=== PATIENT | male | born 1985 | race Caucasian/White ===

== ENCOUNTER 2017-10-29 11:17 | Emergency (ER) | payer SELFPAY ==
[~2017-10-29] VITALS: Ht 162.6 cm; Wt 77.1 kg
[~2017-10-29 11:17] MED LIST: IBP800T PO; LEVO500T69 PO; LORA1TAB PO; TRM50T PO
[2017-10-29] MEDS ORDERED: PANTOPRAZOLE 40 MG/10 ML (PROTONIX) VIAL IV ONE (11:30)
[2017-10-29 11:38] LABS: BASOPHILS % (AUTO) 0 % (0-10); EOSINOPHILS # (AUTO) 0.1 10^3/uL (0.0-0.3); EOSINOPHILS % (AUTO) 1 % (0-10); HEMATOCRIT 44 % (40-54); HEMOGLOBIN 15.7 G/DL (13.3-17.7); LYMPHOCYTES # (AUTO) 3.5 X 10^3 (1.0-4.0); LYMPHOCYTES % (AUTO) 34 % (12-44); MEAN CORPUSCULAR HEMOGLOBIN 33 PG (25-34); MEAN CORPUSCULAR HGB CONC 36 G/DL (32-36); MEAN CORPUSCULAR VOLUME 91 FL (80-99); MEAN PLATELET VOLUME 9.8 FL (7.4-10.4); MONOCYTES # (AUTO) 0.6 X 10^3 (0.0-1.0); MONOCYTES % (AUTO) 6 % (0-12); NEUTROPHILS # (AUTO) 6.1 X 10^3 (1.8-7.8); NEUTROPHILS % (AUTO) 59 % (42-75); PLATELET COUNT 256 10^3/uL (130-400); RED BLOOD COUNT 4.77 10^6/uL (4.35-5.85); RED CELL DISTRIBUTION WIDTH 12.9 % (10.0-14.5); WHITE BLOOD COUNT 10.3 10^3/uL (4.3-11.0)
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
[2017-10-29] MEDS ORDERED: LORA2TAB (11:40)
[2017-10-29] MEDS ORDERED: AMIT150T (11:40)
[2017-10-29] MEDS ORDERED: NS 250 ML (IVPB) BAG IV ONE (12:00)
[2017-10-29] MEDS ORDERED: CATHETER FLUSH 10 ML SYR IV PRN (12:00)
[2017-10-29] MEDS ORDERED: IOHEXOL 350 MG/ML 100 ML (OMNIPAQUE 350) VIAL IV ONE (12:00)
[2017-10-29 12:01] LABS: ALANINE AMINOTRANSFERASE 21 U/L (0-55); ALBUMIN 4.6 GM/DL (3.2-4.5); ALKALINE PHOSPHATASE 58 U/L (40-136); BILIRUBIN,TOTAL 0.3 MG/DL (0.1-1.0); BUN/CREATININE RATIO 19; CALCIUM 9.3 MG/DL (8.5-10.1); CARBON DIOXIDE 22 MMOL/L (21-32); CHLORIDE 108 MMOL/L (98-107); CREATININE SERUM 0.84 MG/DL (0.60-1.30); GFR ESTIMATED > 60; GLUCOSE 88 MG/DL (70-105); POTASSIUM 4.3 MMOL/L (3.6-5.0); SODIUM 142 MMOL/L (135-145); TOTAL PROTEIN 7.7 GM/DL (6.4-8.2)
--- NOTE | 2017-10-29 12:18 | Diagnostic Imaging Report ---
PROCEDURE: CT abdomen and pelvis with contrast. TECHNIQUE: Multiple contiguous axial images were obtained through the abdomen and pelvis after administration of intravenous contrast. INDICATION: Abdominal pain and vomiting blood. COMPARISON: Comparison is made with prior CT from 02/10/2013. FINDINGS: The lung bases are clear. Enhancing lesion in the right lobe of the liver posteriorly is stable and most consistent with a hemangioma. No additional liver mass is identified. The gallbladder is unremarkable. The pancreas and spleen are unremarkable. No adrenal mass is detected. The kidneys are unremarkable. Aorta is nonaneurysmal. The small and large bowel loops are normal caliber. There is no ascites. No inflammatory process is seen. The bladder and prostate are unremarkable. IMPRESSION: No acute abnormality in the abdomen or pelvis is identified. Dictated by: Dictated on workstation # [id number]
[2017-10-29] MEDS ORDERED: SUCR1TAB PO (12:37)
[2017-10-29] MEDS ORDERED: PANT40TA2 PO (12:37)
[2017-10-29 12:47] VITALS: BP 123/70
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
== END 2017-10-29 12:47 | disposition home or self-care (01) ==
LOC: EDUNIT# 11:17 → ER 11:20
DX: K29.70 Gastritis, unspecified, without bleeding (principal); K92.0 Hematemesis; F41.9 Anxiety disorder, unspecified; F32.9 Major depressive disorder, single episode, unspecified
CPT/HCPCS: 36415; 74177; 80053; 85025; 96374

== ENCOUNTER → 2019-10-05 | Outpatient (CLI) | payer SELFPAY ==
[~2019-10-05] MED LIST changes: +AMIT150T; +LORA2TAB; +PANT40TA2 PO; +SUCR1TAB PO
--- NOTE | 2019-10-05 12:51 | Diagnostic Imaging Report ---
PROCEDURE: MR imaging cervical spine without contrast. TECHNIQUE: Multiplanar, multisequence MR imaging of the cervical spine was performed without contrast. INDICATION: Neck pain and left shoulder pain. There is some straightening of the normal cervical lordotic curvature. There is minimal retrolisthesis C5 on C6. Vertebral body marrow signal is unremarkable. There is some degenerative disc disease C5-C6 level with disc space narrowing and desiccation. Cervical cord show normal homogeneous signal intensity. Craniocervical junction is unremarkable. C2-C3: The central canal and neural foramina are widely patent. C3-C4: Central canal and neural foramina are widely patent. C4-C5: Central canal and neural foramina are widely patent. C5-C6: Endplate osteophytes indent the ventral thecal sac. Even so, no significant central canal narrowing is seen. There appears to be moderate narrowing of the left neural foramen. Right neural foramen is patent. C6-C7: Central canal and neural foramina are widely patent. C7-T1: Central canal and neural foramina are patent. IMPRESSION: C5-C6 degenerative disc disease. There does appear to be some left neural foraminal narrowing. No central canal stenosis is detected. Dictated by: Dictated on workstation # [id number]
== END ==
LOC: RAD 11:08
PROVIDERS: ATTEND Nurse Practitioner Community Health
DX: M50.122 Cervical disc disorder at C5-C6 level with radiculopathy (principal)
CPT/HCPCS: 72141

== ENCOUNTER 2020-09-25 11:42 | Emergency (ER) | payer SELFPAY ==
[~2020-09-25] VITALS: Ht 165 cm; Wt 68.0 kg
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
[2020-09-25 12:47] LABS: BILIRUBIN,URINE NEGATIVE (NEGATIVE); CLARITY,URINE CLEAR; COLOR,URINE YELLOW; GLUCOSE, URINE (UA) NEGATIVE (NEGATIVE); KETONES,URINE NEGATIVE (NEGATIVE); LEUKOCYTE ESTERASE ,URINE NEGATIVE (NEGATIVE); NITRITE,URINE NEGATIVE (NEGATIVE); PH,URINE 6.5 (5-9); PROTEIN,URINE NEGATIVE (NEGATIVE)
[2020-09-25 13:02] LABS: AMORPHOUS SEDIMENT,UR FEW AMOR URATES /LPF; BACTERIA,URINE NEGATIVE /HPF
[2020-09-25] MEDS ORDERED: KETOROLAC 60 MG/2 ML VIAL IM STA (13:42)
[2020-09-25 14:07] VITALS: BP 114/74
== END 2020-09-25 14:07 | disposition home or self-care (01) ==
LOC: EDUNIT# 11:42 → ER 11:43
DX: K40.90 Unilateral inguinal hernia, without obstruction or gangrene, not specified as recurrent (principal)
CPT/HCPCS: 81000; 99284

== ENCOUNTER 2020-10-04 05:51 | Outpatient (CLI) | payer OTHER ==
[~2020-10-04] VITALS: Ht 165.1 cm; Wt 64.0 kg
== END 2020-10-04 14:23 | disposition home or self-care (01) ==
LOC: PREOP 05:51
PROVIDERS: ATTEND Surgery
DX: Z01.818 Encounter for other preprocedural examination (principal)

== ENCOUNTER 2020-10-11 07:16 | Day surgery (SDC) | payer OTHER ==
[~2020-10-11] VITALS: Ht 165.1 cm; Wt 64.0 kg
[2020-10-11] VITALS (15 sets, daily range): BP systolic 90–125; BP diastolic 50–90
[2020-10-11] MEDS ORDERED: ceFAZolin 2 GM IV Premixed 50 ML IV ONE (07:45)
[2020-10-11 08:02] LABS: BASOPHILS % (AUTO) 0 % (0-10); EOSINOPHILS # (AUTO) 0.1 10^3/uL (0.0-0.3); EOSINOPHILS % (AUTO) 1 % (0-10); HEMATOCRIT 43 % (40-54); LYMPHOCYTES % (AUTO) 27 % (12-44); MEAN CORPUSCULAR HEMOGLOBIN 32 pg (25-34); MEAN CORPUSCULAR HGB CONC 35 g/dL (32-36); MEAN CORPUSCULAR VOLUME 93 fL (80-99); MEAN PLATELET VOLUME 9.5 fL (9.0-12.2); MONOCYTES # (AUTO) 0.5 10^3/uL (0.0-1.0); MONOCYTES % (AUTO) 5 % (0-12); NEUTROPHILS # (AUTO) 7.2 10^3/uL (1.8-7.8); NEUTROPHILS % (AUTO) 66 % (42-75); PLATELET COUNT 245 10^3/uL (130-400); WHITE BLOOD COUNT 10.8 10^3/uL (4.3-11.0)
[2020-10-11] MEDS ORDERED: MIDAZOLAM 2 MG/2 ML (VERSED) VIAL ONE (08:14)
[2020-10-11] MEDS ORDERED: GLYCOPYRROLATE 0.2 MG/ML (ROBINUL) 2 ML VIAL ONE (08:14)
[2020-10-11] MEDS ORDERED: ROCURONIUM 10 MG/ML 5 ML SYRINGE IV ONE (08:14)
[2020-10-11] MEDS ORDERED: fentaNYL INJ 100 MCG/2 ML AMP ONE ×2 (08:14→10:51)
[2020-10-11] MEDS ORDERED: ONDANSETRON 4 MG/2 ML (SDV) Z0FRAN ONE (08:14)
[2020-10-11] MEDS ORDERED: proPOfol 200 MG/20 ML (DIPRIVAN) VIAL IV ONE (08:14)
[2020-10-11] MEDS ORDERED: NEOSTIGMINE 3 MG/3 ML VIAL ONE (08:14)
[2020-10-11] MEDS ORDERED: LIDOCAINE PF 2% 5 ML (XYLOCAINE) VIAL ONE (08:14)
[2020-10-11] MEDS ORDERED: SEVOFLURANE (ULTANE) 15 ML INHAL SOLN ONE ×4 (08:14→10:55)
--- NOTE | 2020-10-11 08:25 | Progress Note-Pre Operative ---
Pre-Operative Progress Note H&P Reviewed The H&P was reviewed, patient examined and no changes noted. Time Seen by Provider: 08:22 Date H&P Reviewed: Oct 11, 2020 Time H&P Reviewed: 08:23 Pre-Operative Diagnosis: Left inguinal Hernia, site marked PATI GUILLEN DO Oct 11, 2020 08:25
[2020-10-11] MEDS ORDERED: LIDOCAINE/EPI 1%-1:100,000 (XYLOCAINE) 10 ML ONE (08:49)
[2020-10-11] MEDS: LACTATED RINGERS 1,000 ML IV PRN ×2 (09:57→14:07)
--- NOTE | 2020-10-11 11:22 | Progress Note-Post Operative ---
Post-Operative Progess Note Surgeon (s)/Job Cost Estimator (s) Surgeon PATI GUILLEN DO Job Cost Estimator: LAUREN Valentine Pre-Operative Diagnosis LEFT INGUINAL HERNIA Post-Operative Diagnosis same direct Procedure & Operative Findings Date of Procedure 10/11/20 Procedure Performed/Findings After informed consent was obtained, the patient was brought to the operating room and placed on the operating table in a supine position. He was sterilely prepped and draped in a normal fashion. Local lidocaine was used to infiltrate the skin above the umbilicus. I made an incision with #11 blade, carried down to the skin into subcutaneous tissue and then deepened down the subcutaneous tissue with Bovie electrocautery down to the fascia. Fascia was incised with Bovie electrocautery and bluntly entered the abdomen, swept a finger around, placed 0 Vicryl fmihrz-sy-nyqyb suture and placed limited trocar port under direct visualization. Created pneumoperitoneum, able to visualize the hernia and took a picture of this and then placed two 8 mm ports about 10 cm on either side of the midline port using a local lidocaine, 11 blade for stab incision and then advanced the robotic port under direct visualization. Once this was in, I then placed the patient in Trendelenburg and then placed the working instruments, the fenestrated bipolar and the scissors. Looked on the right side and did not see a hernia. I could see a Direct hernia defect on the left side. Next, I came across the peritoneum approximately 8 cm away from the hernia defect, going across laterally starting from midline right at median umbilical ligament. I came across laterally all the way out about 16 cm, possibly more and then carefully dissected the visceral peritoneum away and down and then in the midline, went through the parietal side and dissected down to the pubic tubercle, dissecting this down carefully pushing the peritoneum away, I were able to then visualize the pubic tubercle and Jovanni's ligament. I went 2 cm posterior and at this point, we then had a critical view of the dissection, able to dissect 2 cm across the midline to the right side, 2 cm posterior to the Jovanni's ligament, able to then parietalize the vas deferens and spermatic vessels right at the groove between Jovanni's and iliac vein and able to dissect, make sure there was no peritoneum between those two, able to see the direct hernia space, took a picture of this, looked at the femoral space. There was a hernia and carefully teased out the hernia sac and could visualize the direct hernia space. Next I looked on the cord and cord structures. There was a small cord lipoma that I was able to reduce as well. I could barely see the inguinal canal and the indirect space. Next I carried the posterior lateral dissection all the way out and then placed a 12.4 x 17 regular Bard 3DMax mesh. It laid in nicely, covered the hernia defect and the rest of the area. It was above the peritoneum, sutured it at the pubic tubercle with a 3-0 Vicryl suture and tied this off. I then placed a suture laterally to hold it in place. Again, this appeared to lay in very nicely. I then brought down the pneumoperitoneum to about 8 mmHg and then started closing the peritoneum. Started laterally and used a 2-0 V-lock barbed suture to start a running stitch to close the peritoneum. This was closed nicely, took a picture of the closure at this point, then removed both needles had switched to a suture truck driver flatbed from the scissors. The patient was then placed back supine, removed all ports under direct visualization, allowed pneumoperitoneum to escape and then closed the supraumbilical incision, closing the fascia with 0 Vicryl suture previously placed. Copiously irrigated all incisions and then closed the two small 8 mm incisions with two interrupted 4-0 undyed Monocryl subcuticular stitches and closed the supraumbilical incision with three interrupted undyed Monocryl subcuticular stitch. Area was cleaned and dried. Dermabond was placed. The patient tolerated the procedure. The sponge, instrument and needle counts were correct at the end of the case. Anesthesia Type GET Estimated Blood Loss Estimated blood loss (mL): scant Specimens/Packing Specimens Removed none PATI GUILLEN DO Oct 11, 2020 11:22
[2020-10-11] MEDS ORDERED: ACHD5005 PO (11:23)
--- NOTE | 2020-10-11 11:24 | Discharge Inst-Surgical ---
Discharge Inst-Surgical Depart Medication/Instructions New, Converted or Re-Newed RX: RX Given to Pt/Family Patient Instructions Follow up Appt: Make appointment for 1 week. [phone] Instructions: No lifting greater than 20 pounds. No strenuous activity. May shower in 24 hours, no tub bath or soaking. Use incentive spirometer at home as directed. No Smoking Skin/Wound Care: May remove bandages in am. You need to leave the Dermabond on incision it will fall off on it's own. Symptoms to Report: Appetite Changes, Extremity Discoloration, Numbness/Tingling, Swelling Increased, Bleeding Excessive, Eyesight Changes, Pain Increased, Urine Color Change, Constipation(Persistent), Fever over 101 degree F, Pain/Pressure in chest, Urinating Difficulty, Cough Up/Vomit Blood, Heart Beat Irreg/Pounding, Pain/Pressure in jaw, Cramps in feet or legs, Lightheadedness, Pain/Pressure in shoulder, Diarrhea(Persistent), Memory Changes Suddenly, Questions/Concerns, Weight gain consecutive days, Dizziness/Fainting, Nausea/Vomiting, Shortness of Breath, Weight gain over 2 pounds If questions or concerns contact your physician Or seek help at emergency department. Activity Activity as Tolerated: Yes Activity Instructions: Avoid Stress to Incision Driving Instructions: No Driving/Refer to Dr. Rader Discharge Diet: No Restrictions Diet After 24 Hours: Clear Liquid if Nauseous If Any Problems/Questions/Issu: Contact Your Physician, Go to Emergency Room Skin/Wound Care Infection Signs and Symptoms: Increased Redness, Foul Odor of Wound, Increased Drainage, Skin Itchy or Has a Rash, Increased Swelling, Temperature Above 101 F Wound Care Comment: heating pad to shoulder or neck tonight for pain Bathing Instructions: Shower Stitches/Estrellita/Dermabond Dis: Dermabond PATI GUILLEN DO Oct 11, 2020 11:23
[2020-10-11] MEDS ORDERED: PHENYLEPHRINE 100 MCG/ML 10 ML (ANESTHESIA) SYR ONE (11:32)
--- NOTE | 2020-10-11 11:32 | Anesthesia-General Post-Op ---
General Patient Condition Mental Status/LOC: Same as Preop Cardiovascular: Satisfactory Nausea/Vomiting: Absent Respiratory: Satisfactory Pain: Controlled Complications: Absent Post Op Complications Complications None Follow Up Care/Instructions Patient Instructions None needed. Anesthesia/Patient Condition Patient Condition Patient is doing well, no complaints, stable vital signs, no apparent adverse anesthesia problems. No complications reported per nursing. TRIP FISHMAN CRNA Oct 11, 2020 11:32
[2020-10-11] MEDS ORDERED: morphine INJ 10 MG/ML 1ML (SYR OR VIAL) IVP ONE (11:45)
[2020-10-11] MEDS ORDERED: fentaNYL INJ 100 MCG/2 ML AMP IVP ONE (11:45)
[2020-10-11] MEDS ORDERED: MEPERIDINE (DEMEROL) INJ 50 MG/ML IVP ONE (11:45)
[2020-10-11] MEDS: ONDANSETRON 4 MG/2 ML (SDV) Z0FRAN IVP PRN ×2 (12:14→12:24)
== END 2020-10-11 15:50 | disposition home or self-care (01) ==
LOC: SDC 07:16
PROVIDERS: ATTEND Surgery
DX: K40.90 Unilateral inguinal hernia, without obstruction or gangrene, not specified as recurrent (principal); F17.290 Nicotine dependence, other tobacco product, uncomplicated; Z90.89 Acquired absence of other organs; Z80.9 Family history of malignant neoplasm, unspecified
CPT/HCPCS: 36415; 85025; 87081

== ENCOUNTER 2020-11-11 20:53 | Emergency (ER) | payer OTHER ==
[~2020-11-11] VITALS: Ht 162.5 cm; Wt 64.0 kg
[~2020-11-11 20:53] MED LIST changes: +ACHD5005 PO
--- NOTE | 2020-11-11 20:59 | ED Upper Extremity ---
General Chief Complaint: Upper Extremity Stated Complaint: FELL DOWN STAIRS/L HAND INJ Source: patient Exam Limitations: no limitations (HEIKE HENSON APRN) History of Present Illness Date Seen by Provider: Nov 11, 2020 Time Seen by Provider: 20:55 Initial Comments This is a 35-year-old male who appears acutely intoxicated presenting to the ER via POV with his girlfriend with complaints of left hand pain/injury sustained from falling forward down 3 stairs in his home. States he has drank several alcoholic beverages this today. However will not state alcohol content nor volume consumed, noting that it was "several, several drinks". He applied direct pressure with kitchen towel. His last tetanus is unknown. States he did not hit his head or neck. Denies any other injuries. Denies any drug use. Onset: just prior to arrival Severity: severe Pain/Injury Location: left hand Method of Injury: fell (HEIKE HENSON APRN) Allergies and Home Medications Allergies Coded Allergies: No Known Drug Allergies (Verified , 06/22/08) Home Medications Hydrocodone Bit/Acetaminophen 1 Tab Tab, 1 TAB PO Q8H PRN for PAIN-MODERATE (5- 7) Prescribed by: PATI GUILLEN on 10/11/20 1123 Hydrocodone/Acetaminophen 1 Each Tablet, 1 TAB PO Q6H PRN for PAIN-MODERATE (5- 7) Prescribed by: TREVON SHEIKH on 11/12/20 1746 Sulfamethoxazole/Trimethoprim 1 Each Tablet, 1 EACH PO BID Prescribed by: HEIKE HENSON on 11/11/20 2309 Patient Home Medication List Home Medication List Reviewed: Yes (HEIKE HENSON APRN) Review of Systems Constitutional: no symptoms reported (Quick movement noted not) EENTM: no symptoms reported Respiratory: no symptoms reported Cardiovascular: no symptoms reported Gastrointestinal: no symptoms reported Genitourinary: no symptoms reported Musculoskeletal: see HPI Skin: see HPI Psychiatric/Neurological: No Symptoms Reported (HEIKE HENSON APRN) Past Zkmiuil-Maxoxh-Cddvbb Hx Patient Social History Alcohol Beverage of Choice: Whiskey Drug of Choice: STATED NO TODAY....PREVIOUSLY WAS CHECKED "YES" Type Used: Cigarettes Recent Hopitalizations: No (HEIKE HENSON APRN) Immunizations Up To Date Tetanus Booster (TDap): Less than 5yrs PED Vaccines UTD: Yes Date of Influenza Vaccine: May 13, 2021 (HEIKE HENSON APRN) Seasonal Allergies Seasonal Allergies: No (HEIKE HENSON APRN) Past Medical History Surgeries: Yes Adenoidectomy, Appendectomy, Tonsillectomy Respiratory: No Currently Using CPAP: No Currently Using BIPAP: No Cardiac: No Neurological: No Reproductive Disorders: No Genitourinary: No Gastrointestinal: Yes (ing hernia) Musculoskeletal: No Endocrine: No HEENT: No Cancer: No Psychosocial: Yes Anxiety, Depression Integumentary: No Blood Disorders: No (HEIKE HENSON APRN) Family Medical History No Pertinent Family Hx (HEIKE HENSON APRN) Physical Exam Vital Signs Vital Signs - First Documented 11/11/20 11/11/20 20:56 23:24 Temp 37.0 Pulse 108 Resp 20 B/P (MAP) 128/88 (101) Pulse Ox 94 O2 Delivery Room Air (MICHELET JACOBSON MD) Vital Signs Capillary Refill : (HEIKE HENSON APRN) Height, Weight, BMI Height: 5'4.00" Weight: 170lbs. oz. 77.733127vu; 23.47 BMI Method:Stated General Appearance: WD/WN, no apparent distress, other (Acutely intoxicated.) HEENT: PERRL/EOMI, normal ENT inspection, other (Head is normocephalic and atraumatic.) Neck: full range of motion, normal inspection Cardiovascular: normal peripheral pulses (Bilateral upper extremities.), regular rate, rhythm Respiratory: chest non-tender, lungs clear, normal breath sounds, no respiratory distress, no accessory muscle use Back: normal inspection, no vertebral tenderness Shoulder: normal inspection, non-tender, no evidence of injury, normal ROM Wrist: Yes normal inspection, Yes non-tender, Yes no evidence of injury, Yes normal ROM Hand: normal ROM, Left, laceration, soft tissue tenderness Neurologic/Tendon: normal sensation, normal motor functions, normal tendon functions, tendon injury visualized (EDM exposure) Neurologic/Psychiatric: no motor/sensory deficits, alert, other Skin: normal color, warm/dry LEFT HAND: Noted to have apx 2cm full thickness tear to the webspace between his fourth and fifth digits. Additionally has approximately 0.5 cm laceration over his third phalanx PIP joint, and 0.5 cm circular laceration over his 2nd phalanx PIP Joint. Neurovascular intact distal to injuries. (HEIKE HENSON APRN) Progress/Results/Core Measures Results/Orders My Orders Orders - MICHELET JACOBSON MD Tranexamic Acid Injection (Cyklokapron I (11/11/20 22:15) (MICHELET JACOBSON MD) Progress Progress Note : Progress Note Patient examined and in no acute distress. States pain is tolerable at this time. Discussed need to likely repair lacerations via sutures, he consented to procedure. He was noted to be oozing blood from the injury in the webspace of his left fourth and fifth finger. Orders placed for radiographs of the left hand. Placed his hand in normal saline to soak for approximately 5 minutes. Injuries were then cleansed with with chlorhexidine and saline. While cleansing injury sites, a clot in his left fourth/fifth web space dislodged revealing significant arterial bleed. Attempted blind rvlqkz-uo-erqnq ligation with 4-0 Vicryl without success. Direct pressure was applied and Dr. Sousa was consulted to assist. Dr. Sousa consulted Dr. Guillen with general surgery due to extent of arterial involvement. Bleeding is controlled with direct pressure by Stacey Manzo MS 4. We will plan to apply direct pressure with sandbag for 15 to 20 minutes and evaluate bleeding after. If unable to achieve hemostasis will update Dr. Guillen. Radiographs of left hand show no acute fractures. Approximately 30 minutes after sandbag applied wound was reevaluated and noted to still have quite a bit of oozing from the site. Additionally, while cleansing the lacerations on his second and third fingers a small vascular injury was noted on the lateral aspect of his third finger. Direct pressure was applied. Opted to apply topical TX tXA to both vascular injuries, hold pressure, and recheck in 15 minutes. During this time I cleansed his 2nd digit with iodine and then locally anesthetize his index finger with 1 cc of 1% lidocaine. Was able to to achieve good approximation of the laceration on his left second digit with 3 simple interrupted sutures using 4-0 nylon. Med student Stacey Manzo MS 4 was able to apply horizontal mattress to the incision on his left third finger using 4-0 nylon, good approximation achieved. I also placed 1 simple interrupted suture over a small 5 mm laceration PIP joint with 4-0 nylon. After 15 minutes of TXA application his arterial bleeding stopped and clot formation was noted. Carefully examined full-thickness tear in the webspace of his fourth and fifth fingers, and appears to have exposure of his 5th metacarpal and EDM tendon, with no apparent loss of function. I am unable to reapproximate incision due to location and lack of tissue. Dr. Tate reviewed my findings with Dr. Guillen who recommended patient have close follow-up with hand surgery. Dr. Tate consulted Dr. Meyers hand surgeon. We will plan to apply pressure dressing to skin tear, and ronald tape his fourth and fifth fingers. Patient will need to return tomorrow to have wound check and to have redressed. Orders placed for tetanus, Rocephin 1 g IM, and Bactrim DS. Discussed plan to follow-up with Dr. Odonnell next week, take antibiotics as directed, and to return to the ER immediately if his wound starts bleeding again. He verbalized understanding. Neurovascular intact distal to injury pre and post repair and dressing. Reviewed discharge plan of care with patient and his girlfriend they are agreeable with plan. (HEIKE HENSON APRN) Progress Note : Progress Note I was personally involved in the care, treatment, and decision-making of this patient. I have discussed care plan at length with Heike Henson, SAUL and assisted her with wound care. This was a complicated presentation due to arterial bleed with no overlying tissue to close over the bleed. The vessel was difficult to access due to the location between the fingers. Hemostasis was eventually achieved with a combination of topical TXA and pressure application with sandbag. Visible clot formation developed. A thorough pressure dressing was applied and fingers were ronald taped together to protect the clot. I discussed the case with both Dr. Guillen and Dr. Meyers. Antibiotic therapy with close outpatient follow-up was recommended. Rocephin and Bactrim were administered in the ER. Patient was advised of the extreme importance to follow-up, be compliant with antibiotics, and monitor the wound closely, especially because of exposed tendon and connective tissue with no skin a vailable to sew over the wound. Patient expressed understanding and asked about possible consequences of noncompliance. The risk of severe infection was described to him and he expressed understanding. Patient was discharged with his significant other. (MICHELET JACOBSON MD) Diagnostic Imaging Diagonstic Imaging: Xray Plain Films/CT/US/NM/MRI: hand Comments [place], [place] NAME: JEAN PAUL ZEPEDA [facility] REC#: [id number] PT STATUS: REG ER : 1985 PHYSICIAN: HEIKE HENSON APRN ADMIT DATE: 11/11/20/ER Signed Date of Exam:11/11/20 HAND, LEFT, 3 VIEWS INDICATION: Lacerations. Pain. FINDINGS: There is no fracture or dislocation identified. No metallic opaque foreign body. No appreciable soft tissue gas. IMPRESSION: No fracture identified. Dictated by: Dictated on workstation # [id number] Dict: 11/11/202122 Trans: 11/11/202150 [id number] Interpreted by: ROSALES WYLIE Electronically signed by: ROSALES WYLIE 11/11/202150 Reviewed: Reviewed by Me (HEIKE HENSON APRN) Departure Impression Primary Impression: Laceration involving tendon Disposition: HOME, SELF-CARE Condition: Improved Departure-Patient Inst. Decision time for Depature: 23:01 (HEIKE HENSON PERCHER) [place] [facility] [place] [place] Primary Care Physician LUCAS MEYERS DO Patient Instructions: Tendon Laceration (DC), How to Use a Shoulder Sling Add. Discharge Instructions: Discharge: 1. Keep pressure dressing in place until you follow up tomorrow in the emergency department for a wound check. 2. Keep your arm elevated above your heart as much as possible for the next 72 hours to reduce swelling. 3. Follow up with Dr. Meyers hand surgeon this week. Please call office to schedule appointment. 4. May take Tylenol as needed for pain per package insert. 5. Take your antibiotics as directed and complete full course. Drink plenty of water. Do not take with alcohol. 6. If your hand starts to bleed again apply pressure and return to the emergency department. 7. Monitor for signs of infection such as redness, swelling, purulent drainage, increasing pain and fever. Return if you develop any of these symptoms. 8. Return for any new or worsening symptoms. 9. Your tetanus was updated today. All discharge instructions reviewed with patient and/or family. Voiced understanding. Scripts Sulfamethoxazole/Trimethoprim (Bactrim Ds Tablet) 1 Each Tablet 1 EACH PO BID for 7 Days, #14 TAB 0 Refills Prov: HEIKE HENSON APRN 11/11/20 Copy Copies To 1: LUCAS MEYERS STORMY D APRN Nov 11, 2020 20:59 MICHELET JACOBSON MD Nov 13, 2020 06:34
--- NOTE | 2020-11-11 21:27 | Diagnostic Imaging Report ---
INDICATION: Lacerations. Pain. FINDINGS: There is no fracture or dislocation identified. No metallic opaque foreign body. No appreciable soft tissue gas. IMPRESSION: No fracture identified. Dictated by: Dictated on workstation # [id number]
[2020-11-11] MEDS ORDERED: TRANEXAMIC ACID 100 MG/ML 10 ML INJECTION ONE (22:01)
[2020-11-11] MEDS ORDERED: TRANEXAMIC ACID INJECTION 1,000 MG in NS (IVPB) 100 ML IV ONE (22:15)
[2020-11-11] MEDS ORDERED: TETANUS,DIPTH,PERTUSS P/F (BOOSTRIX) 0.5 ML VIAL IM ONE (22:30)
[2020-11-11] MEDS ORDERED: cefTRIAXone 1,000 MG/2.86 ml vial (IM ONLY) IM ONE (22:30)
[2020-11-11] MEDS ORDERED: LIDOCAINE 1% INJ 20 ML 20 ML VIAL INJ ONE (22:30)
[2020-11-11] MEDS ORDERED: SULF1TAB35 PO (23:09)
[2020-11-11] MEDS ORDERED: TRIM/SULFAMETH 160/800 (SEPTRA DS) TAB PO ONE (23:15)
[2020-11-11 23:24] VITALS: BP 127/86
[2020-11-12] MEDS ORDERED: ACHD5005 PO (17:46)
== END 2020-11-11 23:24 | disposition home or self-care (01) ==
LOC: EDUNIT# 20:53 → ER 20:54
DX: S66.922A Laceration of unspecified muscle, fascia and tendon at wrist and hand level, left hand, initial encounter (principal); Z23 Encounter for immunization; W10.8XXA Fall (on) (from) other stairs and steps, initial encounter; Y92.009 Unspecified place in unspecified non-institutional (private) residence as the place of occurrence of the external cause
CPT/HCPCS: 12042; 73130; 90715

== ENCOUNTER 2020-11-12 17:24 | Emergency (ER) | payer OTHER ==
[~2020-11-12] VITALS: Ht 162 cm; Wt 68.0 kg
[~2020-11-12 17:24] MED LIST changes: +SULF1TAB35 PO
[2020-11-12 17:30] VITALS: BP 166/78
[2020-11-12] MEDS ORDERED: HYDROcodone/APAP 5 MG/325 MG (LORTAB) TAB PO ONE (17:45)
--- NOTE | 2020-11-12 17:45 | ED Suture Removal/Wound Check ---
Suture/Wound Re-check General Appearance: WD/WN, mild distress Neuro/Tendon: normal sensation, normal motor functions, normal tendon functions, responds to pain Skin Exam: normal color, warm/dry Comments Patient is a 35-year-old male who presents to the emergency department for a wound recheck to his left hand between the fourth and fifth fingers on the dorsal aspect. Patient was seen last evening after a fall onto a staircase which he avulsed a 2 x 2 area of skin off the dorsum of the hand. Patient is complaining of pain. He has been taking some ibuprofen but states that he thought he can get away without pain meds but is now asking if he can have some. Wound is undressed and actually looks really good. There is no drainage from the wound there is no surrounding erythema. It is very tender to manipulation with the fingers. Wound will be redressed with Neosporin and Telfa dressing. The rest of his sutures appear clean dry and intact to the other fingers. Physical Exam Vital Signs Vital Signs - First Documented 11/12/20 17:30 Temp 37.0 Pulse 78 Resp 16 B/P (MAP) 166/78 Pulse Ox 98 O2 Delivery Room Air Capillary Refill : General Appearance: WD/WN Cardiovascular: regular rate, rhythm Respiratory: no respiratory distress, no accessory muscle use Extremities: normal range of motion, normal inspection Skin: normal color, warm/dry, other (Wound as per HPI note) Skin Problem Character: lesion (Area of a avulsed tissue about 2 x 2-1/2 cm, between the metacarpophalangeal joints of the fourth and fifth fingers on the left hand over the dorsum) Departure Impression Primary Impression: Wound pain Disposition: 01 HOME, SELF-CARE Condition: Stable Departure-Patient Inst. Decision time for Depature: 17:42 Referrals: [facility] [place] ([place]/Family) Primary Care Physician LUCAS PETERS DO Patient Instructions: Wound Care (DC) Add. Discharge Instructions: Keep the wound clean dry and covered. You can change the bandage tomorrow. You do not need to keep applying Neosporin to the wound. Please come back in 2 to 3 days for another wound evaluation. You should also call and follow-up with a hand surgeon as previously instructed by Dr. Aguilar. Return to the emergency room sooner if you develop fever, increased pain, redness or streaking up your hand or any other emergent concerning symptoms. Please fill your antibiotic prescription today and start taking it. Scripts Hydrocodone/Acetaminophen (Hydrocodone-Acetamin 5-325 mg) 1 Each Tablet 1 TAB PO Q6H PRN for PAIN-MODERATE (5-7), #15 TAB Prov: TREVON SHEIKH MD 11/12/20 TREVON SHEIKH MD Nov 12, 2020 17:45
[2020-11-12] MEDS ORDERED: ACHD5005 PO (17:46)
== END 2020-11-12 17:53 | disposition home or self-care (01) ==
LOC: EDUNIT# 17:24 → ER 17:25
DX: Z48.00 Encounter for change or removal of nonsurgical wound dressing (principal)
CPT/HCPCS: 99282; A4565

== ENCOUNTER 2020-11-16 16:22 | Emergency (ER) | payer OTHER ==
[~2020-11-16] VITALS: Ht 162 cm; Wt 68.0 kg
[2020-11-16 16:25] VITALS: BP 141/88
--- NOTE | 2020-11-16 17:06 | ED Suture Removal/Wound Check ---
Suture/Wound Re-check Suture Removal/Wound Recheck : Progress This 35-year-old gentleman presents to the emergency room for a wound check. He had multiple lacerations and a skin avulsion of the left hand and [facility]. The injury occurred from a fall into a set of stairs while he was intoxicated. There was significant difficulty in controlling bleeding due to the skin avulsion and arterial laceration during his initial presentation. Wound was heavily dressed and he was instructed to return for wound care. He returned on November 12 and again today. He reports compliance with his antibiotics. The wounds appear to be healing nicely. Sutures are intact. He has acceptable range of motion. There are no inflammatory changes to suggest infection. Patient has an appointment with Dr. Meyers on Thursday. Dressings were taken down. Wounds were examined. Wounds were redressed with Xeroform, cotton gauze wraps, and Coban. Patient was given additional dressing supplies. I have instructed him to start leaving it open to air when he is awake and at rest. He was instructed to return in 48 hours for suture removal. During the wound care we had a conversation about his alcohol consumption and he was encouraged to seek help and support for alcohol cessation. Patient was very open to this conversation. Physical Exam Vital Signs Vital Signs - First Documented 11/16/20 16:25 Temp 36.6 Pulse 97 Resp 16 B/P (MAP) 141/88 Pulse Ox 97 O2 Delivery Room Air Capillary Refill : General Appearance: WD/WN, no apparent distress Extremities: other (Range of motion in the fingers is about 80%. Patient reports some weakness in strength. There was concern about extensor tendon involvement of the fifth finger. He reports his extensor strength does not feel normal. Wound is dry with no evidence of bleeding. There are no inflammatory changes to suggest infection. Sutures over the lacerations are intact. 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 Decision time for Depature: 17:02 Referrals: [facility] [place] (PCP/Family) Primary Care Physician Patient Instructions: Laceration Repair With Stitches (DC) Add. Discharge Instructions: Keep the wound clean and dry for now. Start leaving the wound open to air when you are resting in clean environments. Keep covered when active, working, sleeping, or in dirty environments. Return on Thursday for another wound check, dressing change, and to have sutures removed. You are encouraged to keep your follow-up appointment with the hand surgeon. Call with questions or concerns. Return to care if you have any worsening symptoms. Complete the antibiotics as prescribed. Work toward reduction in alcohol use with a gradual taper. Consider seeking assistance for alcohol cessation with programs such as AA, the [facility] in [place], addiction treatment services at the [facility], [facility] (the [facility]), etc. All discharge instructions reviewed with patient and/or family. Voiced understanding. Copy Copies To 1: LUCAS MEYERS JOSHUA T MD Nov 16, 2020 17:06
== END 2020-11-16 17:10 | disposition home or self-care (01) ==
LOC: EDUNIT# 16:22 → ER 16:23
DX: S61.412D Laceration without foreign body of left hand, subsequent encounter (principal); W10.9XXD Fall (on) (from) unspecified stairs and steps, subsequent encounter

== ENCOUNTER 2020-11-18 19:13 | Emergency (ER) | payer OTHER ==
[~2020-11-18] VITALS: Ht 162.6 cm; Wt 68.0 kg
[2020-11-18 19:20] VITALS: BP 123/89
--- NOTE | 2020-11-18 19:39 | ED Suture Removal/Wound Check ---
Suture/Wound Re-check Suture Removal/Wound Recheck : Suture Removal/Wound Recheck: Dry/sterile dressing-appl Progress SEEN AT [facility] PT HERE FOR WOUND CHECK OF LEFT HAND PT HAS NO COMPLAINTS NO INCREASE IN PAIN OR DISCHARGE OR REDNESS OR SWELLING PT IS STILL TAKING ANTIBIOTICS PRESCRIBED General Appearance: no apparent distress Neuro/Tendon: normal sensation, normal motor functions, normal tendon functions Skin Exam: normal color, warm/dry, other (SUTURES TO INDEX AND MIDDLE FINGERS ARE INTACT, WOUND EDGES ARE WELL APPROXIMATED. SUTURED WOUNDS HAVE INCOMPLETE SCAB FORMATION AT THIS TIME, SO WILL LEAVE SUTURES IN PLACE FOR A FEW MORE DAYS. NO SIGNS IF INFECTION TO SUTUTRED WOUNDS. OPEN AREAS TO PROXIMAL 45H AND 5TH FINGERS AND OVER MCP JOINT AREAS WITH SCANT AMOUNT OF SERO-SANGUINOUS DRAINAGE. NO PURULENCE.. NO SURROUNDING REDNESS OR SWELLING, AND NO SIGNIFICANT PAIN. ) Comments DRESSINGS REMOVED, WOUNDS CLEANSED AND FRESH DRESSINGS APPLIED SUTURES LEFT IN PLACE, THEY ARE OVER JOINTS, AND DO NOT APPEAR COMPLETELY SCABBED OVER AT THIS TIME Physical Exam Vital Signs Capillary Refill : General Appearance: WD/WN, no apparent distress, other (DRESSINGS ARE FILTHY, IS REST OF HAND. ) Extremities: normal capillary refill, other (LEFT HAND ABOVE. MOTOR/SENSORY/VASCULAR INTACT, FINGERS ARE PINK AND WARM WITH GOOD CAPILLARY REFILL) Neurologic/Psychiatric: no motor/sensory deficits, alert, normal mood/affect Skin: normal color, warm/dry, other ( ABOVE) Departure Impression Primary Impression: Encounter for wound re-check Disposition: 01 HOME, SELF-CARE Condition: Stable Departure-Patient Inst. Referrals: [facility] [place] (PCP/Family) Primary Care Physician Patient Instructions: Wound Care (DC) Add. Discharge Instructions: CONTINUE PREVIOUS WOUND CARE INSTRUCTIONS CONTINUE ANTIBIOTICS PRESCRIBED RETURN TO ER IN 3 DAYS FOR WOUND CHECK AND SUTURE REMOVAL All discharge instructions reviewed with patient and/or family. Voiced understanding. LIBIA FORTUNE DO November 18, 2020 19:39
== END 2020-11-18 19:50 | disposition home or self-care (01) ==
LOC: EDUNIT# 19:13 → ER 19:14
DX: Z48.00 Encounter for change or removal of nonsurgical wound dressing (principal)
CPT/HCPCS: 99282; A6223

== ENCOUNTER 2020-11-21 15:45 | Emergency (ER) | payer OTHER ==
[~2020-11-21] VITALS: Ht 162.6 cm; Wt 68.0 kg
[2020-11-21 15:52] VITALS: BP 118/73
== END 2020-11-21 16:04 | disposition home or self-care (01) ==
LOC: EDUNIT# 15:45 → ER 15:47
DX: Z48.02 Encounter for removal of sutures (principal)

== ENCOUNTER 2022-01-18 16:42 | Emergency (ER) | payer SELFPAY ==
[~2022-01-18] VITALS: Ht 162 cm; Wt 68.0 kg
[~2022-01-18 16:42] MED LIST changes: -SULF1TAB35 PO; +SULF1TAB38 PO
[2022-01-18 16:45] VITALS: BP 108/69
[2022-01-18] MEDS ORDERED: LACTATED RINGERS 1,000 ML IV SCH ×2 (17:00→18:00)
--- NOTE | 2022-01-18 17:00 | ED General ---
General Stated Complaint: POSSIBLE HEAT STROKE Source of Information: Patient Exam Limitations: No Limitations (TREVON SHEIKH MD) History of Present Illness Date Seen by Provider: Jan 18, 2022 Time Seen by Provider: 16:50 Initial Comments Patient is a 36-year-old male who presents to the emergency room with a chief complaint of concern for "heatstroke". 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 He normally gets off at around 2:00 on Fridays. He states he knows he did not drink enough water yesterday, he did not get off until about 430. Patient states he attempted to drive home and got very confused as to the route home and could not figure out where he was. He finally was able to make it home. His reportedly has been trying to push fluids over the last 24 hours but he has acted not like himself. He complains of muscle aches everywhere. He has a severe frontal headache. He took 2 ibuprofen last night and 2 this morning. He denies nausea, vomiting or diarrhea. He states his urine is very "yellow". No rashes. No fevers or chills. No productive cough. He states his head hurts worse when he "looks up". He does take a daily medication "from my head" but he cannot recall what it is. No allergies to medications. He denies any intoxicants. No pfdu-wcc-xnylxyf cold remedies or medications such as Benadryl. He did take a melatonin for sleep last night. All other review of systems reviewed and negative except as stated. Timing/Duration: 24 Hours Severity: Severe Associated Systoms: Diaphoresis, Headaches, Malaise, Weakness (TREVON SHEIKH MD) Allergies and Home Medications Allergies Coded Allergies: No Known Drug Allergies (Verified , 06/22/08) Patient Home Medication List Home Medication List Reviewed: Yes (TREVON SHEIKH MD) Hydrocodone Bit/Acetaminophen (HYDROcodone/APAP 5 MG/325 MG TAB) 1 Tab Tab, 1 TAB PO Q8H PRN for PAIN-MODERATE (5-7) Prescribed by: PATI GUILLEN on 10/11/20 1123 Hydrocodone/Acetaminophen (Hydrocodone-Acetamin 5-325 mg) 1 Each Tablet, 1 TAB PO Q6H PRN for PAIN-MODERATE (5-7) Prescribed by: TREVON SHEIKH on 11/12/20 174 Sulfamethoxazole/Trimethoprim (Bactrim Ds Tablet) 1 Each Tablet, 1 EACH PO BID Prescribed by: SINCERE HENSON on 11/11/20 2309 Review of Systems Review of Systems Constitutional: see HPI Respiratory: no symptoms reported Gastrointestinal: no symptoms reported Genitourinary: no symptoms reported Musculoskeletal: muscle cramps Skin: no symptoms reported Psychiatric/Neurological: Headache, Weakness (TREVON SHEIKH MD) All Other Systems Reviewed Negative Unless Noted: Yes (TREVON SHEIKH MD) Past Ywlfchh-Iplqhl-Mlfexn Hx Immunizations Up To Date Tetanus Booster (TDap): Unknown PED Vaccines UTD: Yes (TREVON SHEIKH MD) Seasonal Allergies Seasonal Allergies: No (TREVON SHEIKH MD) Past Medical History Surgeries: Yes (HERNIA) Adenoidectomy, Appendectomy, Tonsillectomy Respiratory: No Currently Using CPAP: No Currently Using BIPAP: No Cardiac: No Neurological: No Reproductive Disorders: No Genitourinary: No Gastrointestinal: Yes (ing hernia) Musculoskeletal: No Endocrine: No HEENT: No Cancer: No Psychosocial: Yes Anxiety, Depression Integumentary: No Blood Disorders: No (TREVON SHEIKH MD) Family Medical History No Pertinent Family Hx (TREVON SHEIKH MD) Physical Exam Vital Signs Vital Signs - First Documented 01/18/22 16:45 Temp 36.3 Pulse 88 Resp 16 B/P (MAP) 108/69 (82) Pulse Ox 97 (RADHA OJEDA MD) Vital Signs Capillary Refill : (TREVON SHEIKH MD) Height, Weight, BMI Height: 5'4.00" Weight: 170lbs. oz. 77.739606ix; 24.00 BMI Method:Actual General Appearance: No Apparent Distress, Other (appears fatigued; slow to respond) Eyes: Bilateral Eye Normal Inspection, Bilateral Eye PERRL (Pupils approximately 2 mm bilaterally almost pinpoint), Bilateral Eye EOMI HEENT: PERRL/EOMI, Pharynx Normal, Moist Mucous Membranes Neck: Normal Inspection Respiratory: Lungs Clear, Normal Breath Sounds, No Accessory Muscle Use, No Respiratory Distress Cardiovascular: Regular Rate, Rhythm, Normal Peripheral Pulses Gastrointestinal: Normal Bowel Sounds, Non Tender, Soft Extremity: Normal Inspection, Normal Range of Motion, No Pedal Edema, Other (tenderness to palpation large muscle groups of the arms and legs) Neurologic/Psychiatric: Alert, Oriented x3, No Motor/Sensory Deficits, 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- XII Norm as Tested, Depressed Affect, Other (slow and deliberate finger to nose - seems to have a hard time focusing; global decreased strength; normal sensation) Skin: Normal Color, Warm/Dry, Tattoos/Piercings (mulsiplte tattoos) (TREVON SHEIKH MD) Progress/Results/Core Measures Suspected Sepsis SIRS Temperature: Pulse: Respiratory Rate: Laboratory Tests 01/18/22 16:48: White Blood Count 6.1 Blood Pressure / Mean: Laboratory Tests 01/18/22 16:48: Platelet Count 179 (TREVON SHEIKH MD) Results/Orders Lab Results Laboratory Tests Test 01/18/22 16:48 01/18/22 19:15 Range/Units White Blood Count 6.1 4.3-11.0 10^3/uL Red Blood Count 4.26 L 4.30-5.52 10^6/uL Hemoglobin 13.5 13.3-17.7 g/dL Hematocrit 39 L 40-54 % Mean Corpuscular Volume 93 80-99 fL Mean Corpuscular Hemoglobin 32 25-34 pg Mean Corpuscular Hemoglobin Concent 34 32-36 g/dL Red Cell Distribution Width 12.0 10.0-14.5 % Platelet Count 179 130-400 10^3/uL Mean Platelet Volume 9.8 9.0-12.2 fL Immature Granulocyte % (Auto) 0 % Neutrophils (%) (Auto) 63 42-75 % Lymphocytes (%) (Auto) 24 12-44 % Monocytes (%) (Auto) 12 0-12 % Eosinophils (%) (Auto) 1 0-10 % Basophils (%) (Auto) 1 0-10 % Neutrophils # (Auto) 3.8 1.8-7.8 10^3/uL Lymphocytes # (Auto) 1.4 1.0-4.0 10^3/uL Monocytes # (Auto) 0.8 0.0-1.0 10^3/uL Eosinophils # (Auto) 0.0 0.0-0.3 10^3/uL Basophils # (Auto) 0.0 0.0-0.1 10^3/uL Immature Granulocyte # (Auto) 0.0 0.0-0.1 10^3/uL Sodium Level 140 135-145 MMOL/L Potassium Level 3.6 3.6-5.0 MMOL/L Chloride Level 104 98-107 MMOL/L Carbon Dioxide Level 25 21-32 MMOL/L Anion Gap 11 5-14 MMOL/L Blood Urea Nitrogen 12 7-18 MG/DL Creatinine 1.15 0.60-1.30 MG/DL Estimat Glomerular Filtration Rate 86 BUN/Creatinine Ratio 10 Glucose Level 109 H 70-105 MG/DL Calcium Level 8.7 8.5-10.1 MG/DL Corrected Calcium 8.9 8.5-10.1 MG/DL Total Bilirubin 0.4 0.1-1.0 MG/DL Aspartate Amino Transf (AST/SGOT) 22 5-34 U/L Alanine Aminotransferase (ALT/SGPT) 21 0-55 U/L Alkaline Phosphatase 52 40-136 U/L Total Creatine Kinase 227 H 30-200 U/L Total Protein 6.4 6.4-8.2 GM/DL Albumin 3.8 3.2-4.5 GM/DL Urine Color YELLOW Urine Clarity CLEAR Urine pH 6.0 5-9 Urine Specific [place] 1.010 L 1.016-1.022 Urine Protein NEGATIVE NEGATIVE Urine Glucose (UA) NEGATIVE NEGATIVE Urine Ketones NEGATIVE NEGATIVE Urine Nitrite NEGATIVE NEGATIVE Urine Bilirubin NEGATIVE NEGATIVE Urine Urobilinogen 0.2 < = 1.0 MG/DL Urine Leukocyte Esterase NEGATIVE NEGATIVE Urine RBC (Auto) NEGATIVE NEGATIVE Urine RBC NONE /HPF Urine WBC NONE /HPF Urine Crystals NONE /LPF Urine Bacteria NEGATIVE /HPF Urine Casts NONE /LPF Urine Mucus NEGATIVE /LPF Urine Culture Indicated NO Urine Opiates Screen NEGATIVE NEGATIVE Urine Oxycodone Screen NEGATIVE NEGATIVE Urine Methadone Screen NEGATIVE NEGATIVE Urine Propoxyphene Screen NEGATIVE NEGATIVE Urine Barbiturates Screen NEGATIVE NEGATIVE Ur Tricyclic Antidepressants Screen NEGATIVE NEGATIVE Urine Phencyclidine Screen NEGATIVE NEGATIVE Urine Amphetamines Screen POSITIVE H NEGATIVE Urine Methamphetamines Screen POSITIVE H NEGATIVE Urine Benzodiazepines Screen NEGATIVE NEGATIVE Urine Cocaine Screen NEGATIVE NEGATIVE Urine Cannabinoids Screen NEGATIVE NEGATIVE (RADHA OJEDA MD) Medications Given in ED Current Medications Medications Dose Ordered Sig/Bhaskar Route Start Time Stop Time Status Last Admin Dose Admin Ketorolac Tromethamine 15 mg ONCE ONCE IVP 01/18/22 18:00 7/2/22 18:01 DC 01/18/22 18:16 15 MG (RADHA OJEDA MD) Vital Signs/I&O 01/18/22 16:45 Temp 36.3 Pulse 88 Resp 16 B/P (MAP) 108/69 (82) Pulse Ox 97 (RADHA OJEDA MD) Vital Signs/I&O Capillary Refill : (TREVON SHEIKH MD) Progress Note : Progress Note 1809: Assumed care of the patient from Dr. Sheikh pending UA, UDS and repeat normal saline 1 L bolus. Patient is doing okay currently and resting peacefully with normal vital signs. Monitor patient. 1904: Patient states he is able to provide urine so we will get that collected. Mentating well. Resting peacefully. Monitor patient. 1955: UA resulted. I did discuss results with the patient including UDS results. He does admit that he did use recently. I think this may have added to the problem as well as dehydration and heat concerns. All of this was discussed with the patient. He is able to walk without difficulty and overall feels a little better. Discharged home with return precautions. Patient verbalized understanding instructions and agreement with plan. (RADHA OJEDA MD) Departure Impression Primary Impression: Dehydration Additional Impression: Heat exhaustion Qualified Codes: T67.5XXA - Heat exhaustion, unspecified, initial encounter Disposition: HOME, SELF-CARE Condition: Stable Departure-Patient Inst. Decision time for Depature: 19:58 (RADHA OJEDA MD) Referrals: [facility] (PCP/Family) Primary Care Physician Patient Instructions: Heat Exhaustion and Heat Stroke (DC), Dehydration, Adult ED Add. Discharge Instructions: Drink plenty of fluids and eat a normal diet. Get plenty of rest. Avoid activities that would worsen your symptoms as discussed. Return for worse pain, fever, vomiting, weakness, breathing problems, difficulty with walking, difficulty with balance or vision or other concerns as needed. Follow-up with your doctor in a few days for recheck. TREVON SHEIKH MD Jan 18, 2022 17:00 RADHA OJEDA MD Jan 18, 2022 19:59
[2022-01-18 17:05] LABS: BASOPHILS % (AUTO) 1 % (0-10); EOSINOPHILS % (AUTO) 1 % (0-10); HEMATOCRIT 39 % (40-54); HEMOGLOBIN 13.5 g/dL (13.3-17.7); LYMPHOCYTES # (AUTO) 1.4 10^3/uL (1.0-4.0); LYMPHOCYTES % (AUTO) 24 % (12-44); MEAN CORPUSCULAR HEMOGLOBIN 32 pg (25-34); MEAN CORPUSCULAR HGB CONC 34 g/dL (32-36); MEAN CORPUSCULAR VOLUME 93 fL (80-99); MEAN PLATELET VOLUME 9.8 fL (9.0-12.2); MONOCYTES # (AUTO) 0.8 10^3/uL (0.0-1.0); MONOCYTES % (AUTO) 12 % (0-12); NEUTROPHILS # (AUTO) 3.8 10^3/uL (1.8-7.8); NEUTROPHILS % (AUTO) 63 % (42-75); PLATELET COUNT 179 10^3/uL (130-400); WHITE BLOOD COUNT 6.1 10^3/uL (4.3-11.0)
[2022-01-18 17:25] LABS: ALBUMIN 3.8 GM/DL (3.2-4.5)
[2022-01-18 17:26] LABS: POTASSIUM 3.6 MMOL/L (3.6-5.0)
[2022-01-18 17:27] LABS: CALCIUM 8.7 MG/DL (8.5-10.1)
[2022-01-18 17:28] LABS: TOTAL PROTEIN 6.4 GM/DL (6.4-8.2)
[2022-01-18 17:30] LABS: BILIRUBIN,TOTAL 0.4 MG/DL (0.1-1.0)
[2022-01-18 17:32] LABS: CREATININE SERUM 1.15 MG/DL (0.60-1.30)
--- NOTE | 2022-01-18 17:47 | Diagnostic Imaging Report ---
PROCEDURE: CT head without contrast. TECHNIQUE: Multiple contiguous axial images were obtained through the brain without the use of intravenous contrast. Auto Exposure Controls were utilized during the CT exam to meet ALARA standards for radiation dose reduction. INDICATION: Headache, confusion. COMPARISON: 01/05/2013. FINDINGS: No intracranial hemorrhage. No intracranial mass, mass effect, midline shift, herniation, hydrocephalus or extra-axial fluid collection. No CT evidence of an acute ischemic infarction. The orbits are unremarkable. The visualized paranasal sinuses are clear. The calvarium and extracalvarial soft tissues are unremarkable. IMPRESSION: Stable examination without acute intracranial abnormality. Dictated by: Dictated on workstation # [id number]
[2022-01-18] MEDS ORDERED: KETOROLAC 30 MG/ML VIAL IVP ONE (18:00)
[2022-01-18 19:22] LABS: BILIRUBIN,URINE NEGATIVE (NEGATIVE); CLARITY,URINE CLEAR; COLOR,URINE YELLOW; GLUCOSE, URINE (UA) NEGATIVE (NEGATIVE); KETONES,URINE NEGATIVE (NEGATIVE); LEUKOCYTE ESTERASE ,URINE NEGATIVE (NEGATIVE); NITRITE,URINE NEGATIVE (NEGATIVE); PROTEIN,URINE NEGATIVE (NEGATIVE)
[2022-01-18 19:31] LABS: BACTERIA,URINE NEGATIVE /HPF
[2022-01-18 19:34] LABS: AMPHETAMINE SCREEN, URINE POSITIVE (NEGATIVE); BARBITURATE SCREEN URINE NEGATIVE (NEGATIVE); BENZODIAZEPINES SCREEN URINE NEGATIVE (NEGATIVE); CANNABINOID SCREEN, URINE NEGATIVE (NEGATIVE); COCAINE SCREEN URINE NEGATIVE (NEGATIVE); METHADONE STAT NEGATIVE (NEGATIVE); OPIATE SCREEN URINE NEGATIVE (NEGATIVE); OXYCODONE STAT NEGATIVE (NEGATIVE); PROPOXYPHENE STAT NEGATIVE (NEGATIVE); TRICYCLIC ANTIDEPRESSANTS SCRE NEGATIVE (NEGATIVE)
== END 2022-01-18 20:09 | disposition home or self-care (01) ==
LOC: EDUNIT# 16:42 → ER 16:44
DX: T67.5XXA Heat exhaustion, unspecified, initial encounter (principal); G47.9 Sleep disorder, unspecified; Z79.899 Other long term (current) drug therapy; X30.XXXA Exposure to excessive natural heat, initial encounter
CPT/HCPCS: 36415; 70450; 80053; 80306; 81000; 82550; 85025; 99282

== ENCOUNTER 2022-10-02 21:03 | Emergency (ER) | payer SELFPAY ==
--- NOTE | 2022-10-02 21:32 | ED Upper Extremity ---
General Chief Complaint: Upper Extremity Stated Complaint: LEFT SHOULDER PAIN Source: patient Exam Limitations: no limitations History of Present Illness Date Seen by Provider: Oct 02, 2022 Time Seen by Provider: 21:28 Initial Comments Patient is a 37-year-old male presents ED with left shoulder pain. Pain over the past 2 months. Pain started after he was moving a refrigerator by himself. He states he was lifting this heavy fridge and may have injured his shoulder during him moving it. Denies feeling a pop but started having a dull achy pain to his left shoulder. This pain progressed to got worse/over the past few days. Appears to be worse with movement or when he let it hang. He states he has limited range of motion. Denies of any falls. Has been taking ibuprofen and Tylenol without much improvement. 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 Denies any swelling or bruising. Does have some numbness and tingling sensation around the left shoulder. He does states he has normal sidewalk repairer strength without any weakness dista lly. Denies fever, chills, nausea, vomiting, diarrhea, chest pain, shortness of breath Allergies and Home Medications Allergies Coded Allergies: No Known Drug Allergies (Verified , 06/22/08) Patient Home Medication List Home Medication List Reviewed: Yes Hydrocodone Bit/Acetaminophen (HYDROcodone/APAP 5 MG/325 MG TAB) 1 Tab Tab, 1 TAB PO Q8H PRN for PAIN-MODERATE (5-7) Prescribed by: PATI GUILLEN on 10/11/20 1123 Hydrocodone/Acetaminophen (Hydrocodone-Acetamin 5-325 mg) 1 Each Tablet, 1 TAB P O Q6H PRN for PAIN-MODERATE (5-7) Prescribed by: TREVON SHEIKH on 11/12/20 1746 Hydrocodone/Acetaminophen (Hydrocodone-Acetamin 5-325 mg) 5 Mg-325 Mg Tablet, 1 TAB PO Q4H PRN for PAIN-MODERATE (5-7) Prescribed by: LINDA FERNANDO on 10/02/222209 Sulfamethoxazole/Trimethoprim (Bactrim Ds Tablet) 1 Each Tablet, 1 EACH PO BID Prescribed by: SINCERE HENSON on 11/11/20 2309 Review of Systems Constitutional: No chills, No diaphoresis, No fever, No malaise, No weakness EENTM: No ear pain, No blurred vision Respiratory: No cough, No dyspnea on exertion Cardiovascular: No chest pain, No edema Gastrointestinal: No abdominal pain, No constipation, No diarrhea, No nausea, No vomiting Genitourinary: No decreased output, No discharge Musculoskeletal: No back pain; joint pain, joint swelling Skin: No change in color, No change in hair/nails All Other Systems Reviewed Negative Unless Noted: Yes Past Wmrnqto-Euoedy-Wyjbiu Hx Immunizations Up To Date Tetanus Booster (TDap): Unknown PED Vaccines UTD: Yes Seasonal Allergies Seasonal Allergies: No Past Medical History Surgeries: Yes (HERNIA) Adenoidectomy, Appendectomy, Tonsillectomy Respiratory: No Currently Using CPAP: No Currently Using BIPAP: No Cardiac: No Neurological: No Reproductive Disorders: No Genitourinary: No Gastrointestinal: Yes (ing hernia) Musculoskeletal: No Endocrine: No HEENT: No Cancer: No Psychosocial: Yes Anxiety, Depression Integumentary: No Blood Disorders: No Family Medical History No Pertinent Family Hx Physical Exam Vital Signs Vital Signs - First Documented 10/02/22 10/02/22 21:13 22:15 Temp 36.6 Pulse 87 Resp 18 B/P (MAP) 123/81 (95) Pulse Ox 98 O2 Delivery Room Air Capillary Refill : Height, Weight, BMI Height: 5'4.00" Weight: 170lbs. oz. 77.226991gg; 25.00 BMI Method:Actual General Appearance: WD/WN, no apparent distress HEENT: PERRL/EOMI, normal ENT inspection, TMs normal, pharynx normal Neck: non-tender, full range of motion, supple, normal inspection Cardiovascular: regular rate, rhythm, no edema, no gallop, no JVD Respiratory: chest non-tender, lungs clear, normal breath sounds, no respiratory distress, no accessory muscle use Gastrointestinal: normal bowel sounds, non tender, soft, no organomegaly Back: normal inspection, no CVA tenderness, no vertebral tenderness Shoulder: limited ROM (Decreased abduction to 90 degrees. Flexion to 90 degrees. Negative speeds test, positive empty can test. Internal and external rotation strength 5-5. Negative liftoff test.), pain (Tenderness to palpate left anterior shoulder.) Elbow/Forearm: normal inspection, non-tender, no evidence of injury, Left Wrist: Yes normal inspection, Yes non-tender Hand: normal inspection, non-tender, Left Neurologic/Tendon: normal sensation Progress/Results/Core Measures Results/Orders My Orders Orders - MORENITA CHATTERJEE Shoulder, Left, 3 Views (10/02/22 21:19) Hydrocodone/Apap 5/325 Tablet (Lortab 5 (10/02/22 21:45) Medications Given in ED Current Medications Medications Dose Ordered Sig/Bhaskar Route Start Time Stop Time Status Last Admin Dose Admin Acetaminophen/ Hydrocodone Bitart 1 ea ONCE ONCE PO 10/02/22 21:45 10/02/22 21:46 DC 10/02/22 22:07 1 EA Vital Signs/I&O 10/02/22 10/02/22 21:13 22:15 Temp 36.6 Pulse 87 89 Resp 18 20 B/P (MAP) 123/81 (95) 126/82 Pulse Ox 98 O2 Delivery Room Air Departure Communication (PCP) Patient presents ED with left shoulder pain after moving a refrigerator 2 months ago. Reviewed previous ER visits, H&P's, lab testing. Denies history of previous injury to his left shoulder. Patient has normal sidewalk repairer strength bilateral. Does have some weakness with abduction during exam and flexion. Negative speeds test. Appropriate strength with internal and external rotation. Concerning for tendinitis versus rotator cuff injury of the left shoulder. Due to the continued pain and location x-ray was ordered. Did have some tenderness to the AC joint. X-ray was negative for acute fracture or strong evidence of AC separation. Patient was given dose of pain medication. Discussed the importance of physical therapy and to be evaluated by physical therapist. Would likely benefit with MRI at some point for further evaluation of his rotator cuff. Discussed PT at this time. Provided PT exercises. Continue with ibuprofen and range of motion exercises. Provided orthopedic outpatient follow- up. Return precaution were discussed with patient Impression Primary Impression: Left shoulder pain Disposition: 01 HOME, SELF-CARE Condition: Stable Departure-Patient Inst. Decision time for Depature: 22:08 Referrals: [facility] (PCP/Family) Primary Care Physician IVANA JJ MD Patient Instructions: Rotator Cuff Tear Exercises Add. Discharge Instructions: Concern for rotator cuff injury. Recommend continue stretching. Continue with ibuprofen to help with pain. Hydrocodone for breakthrough pain. Recommend avoiding lifting greater than 10 pounds of the left arm for the next [address] with the left arm for the next 4-week. All discharge instructions reviewed with patient and/or family. Voiced understanding. Scripts Hydrocodone/Acetaminophen (Hydrocodone-Acetamin 5-325 mg) 5 Mg-325 Mg Tablet 1 TAB PO Q4H PRN for PAIN-MODERATE (5-7), #8 TAB Prov: MORENITA CHATTERJEE 10/02/22 MORENITA CHATTERJEE Oct 02, 2022 21:32
[2022-10-02] MEDS ORDERED: HYDROcodone/APAP 5 MG/325 MG (LORTAB) TAB PO ONE (21:45)
--- NOTE | 2022-10-02 21:51 | Diagnostic Imaging Report ---
SHOULDER, LEFT, 3 VIEWS INDICATION: Left shoulder pain COMPARISON: None available. TECHNIQUE: Three views of the shoulder were obtained. FINDINGS: No acute fracture. The glenohumeral and acromioclavicular joints are normal in alignment. Subacromial space is well preserved. No abnormal soft tissue mineralizations. IMPRESSION: No acute osseous abnormality. Dictated by: Dictated on workstation # [id number]
[2022-10-02] MEDS ORDERED: ACHD5005 PO (22:10)
[2022-10-02 22:15] VITALS: BP 126/82
== END 2022-10-02 22:15 | disposition home or self-care (01) ==
LOC: EDUNIT# 21:03 → ER 21:05
DX: M25.512 Pain in left shoulder (principal); X50.0XXA Overexertion from strenuous movement or load, initial encounter
CPT/HCPCS: 73030

== ENCOUNTER → 2022-11-18 | Outpatient (CLI) | payer OTHER ==
--- NOTE | 2022-11-19 12:42 | Diagnostic Imaging Report ---
EXAMINATION: Magnetic resonance imaging of the left shoulder without contrast. DATE: November 18, 2022. COMPARISON: Left shoulder radiographs October 02, 2022. HISTORY: 37-year-old male, left shoulder pain. TECHNIQUE: Magnetic Resonance Imaging sequences were performed of the shoulder without contrast. FINDINGS: ROTATOR CUFF, LIGAMENTS, TENDONS, AND MUSCLES: The supraspinatus, infraspinatus, teres minor, and subscapularis tendons and muscles are intact. There is normal rotator cuff muscle bulk and signal. LONG HEAD OF BICEPS: The biceps labral attachment and long head of the biceps tendon is intact. The long head of the biceps tendon is normally positioned within the bicipital groove. GLENOHUMERAL JOINT: The humeral head is well positioned relative to the glenoid. The labrum is grossly intact. There is no identified paralabral cyst. The articular cartilage is grossly intact. There is no joint effusion. ACROMIOCLAVICULAR JOINT: The acromioclavicular joint is normally aligned. The coracoclavicular and coracoacromial ligaments are intact. There are no degenerative changes of the acromioclavicular joint. BONE: There is no os acromiale. There is no Hill-Sachs deformity. There is no acute fracture. There is edema-like signal in the distal clavicle with relative lack of edema in the acromion. There is no bone loss. There is a nondisplaced fracture line best seen on coronal T2 sequence image 10 at this location. BURSAE AND SOFT TISSUES: The bursae and soft tissue surrounding the shoulder are unremarkable. IMPRESSION: 1. Nondisplaced potentially stress related fracture of the distal clavicle. 2. Intact rotator cuff and proximal long head of biceps tendon. 3. Grossly intact labrum and unremarkable additional glenohumeral joint assessment. 4. No acromioclavicular degenerative changes. Dictated by: Dictated on workstation # [id number]
== END ==
LOC: RAD 13:45
PROVIDERS: ATTEND Pediatrics
DX: M84.312A Stress fracture, left shoulder, initial encounter for fracture (principal)
CPT/HCPCS: 73221